=== PATIENT | female | born 1935 | race Caucasian/White ===

== ENCOUNTER 2017-02-18 18:56 | Emergency (ER) | payer MEDICARE, MEDICAID ==
[~2017-02-18] VITALS: Ht 181.6 cm; Wt 71.0 kg
[2017-02-18 19:05] VITALS: BP 118/59; PULSE 78; PULSE 82; RESP 16; TEMP 98.9; O2SAT 100; O2SAT 99
[2017-02-18 19:35] VITALS: BP 144/94; PULSE 82; RESP 16; O2SAT 96
[2017-02-18] MEDS ORDERED: LEVO75TA3 PO (19:35)
[2017-02-18] MEDS ORDERED: VITA10002 IM (19:35)
[2017-02-18] MEDS ORDERED: ALBUAER3 INH (19:35)
[2017-02-18] MEDS ORDERED: IBUP1TAB7 PO (19:37)
[2017-02-18] MEDS ORDERED: ALBU.5I NEB (19:42)
--- NOTE | 2017-02-18 19:45 | PD ---
HPI Chief Complaint: Respiratory Symptoms Time Seen by Provider: 19:19 Travel History International Travel<30 days: No Contact w/Intl Traveler<30days: No Traveled to known affect area: No History of Present Illness HPI 81yo F with PMH of COPD, paralyzed larynx since accident in 1952 here with sob for 2 days. States she uses 2 L oxygen as needed at home but is here for a wedding and does not have her oxygen with her. Pt is saturating at 98% on RA. + Cough. Denies any fever, chest pain, n/v, abdominal pain, focal weakness or numbness. PFSH Past Medical History Asthma: Yes COPD: Yes Diminished Hearing: Yes (BILAT HEARING AIDS) Headaches: Yes Respiratory: Yes Thyroid Disease: Yes Tetanus Vaccination: Unknown Influenza Vaccination: No ?: Not : 3 Para: 2 Miscarriage: 1 Tubal Ligation: Yes Past Surgical History Abdominal Surgery: Yes (GASTRIC TUBE AND REMOVAL ) Other Surgery: Yes (CEREBRAL HEMATOMA X2 REMOVED.) Social History Alcohol Use: Yes (OCC WINE) Tobacco Use: No Substance Use: No Allergies-Medications (Allergen,Severity, Reaction): Coded Allergies: codeine (Verified Allergy, Severe, HIVES, 02/18/17) Reported Meds & Prescriptions Reported Meds & Active Scripts Active Reported Albuterol Neb (Albuterol Sulfate) 2.5 Mg/0.5 Ml Neb 2.5 Mg NEB Q6HR NEB Note: The Albuterol Sulfate Inhalation Solution is concentrated and must be diluted. Read complete instructions carefully before using. Ibuprofen 800 Mg Tab 800 Mg PO Q8H PRN Proair Hfa 8.5 GM Inh (Albuterol Sulfate) 90 Mcg/Act Aer 2 Puff INH Q4-6H PRN 108 mcg/actuation Vitamin B-12 (Cyanocobalamin) 1,000 Mcg Tab 1,000 Mcg IM DAILY Levothyroxine (Levothyroxine Sodium) 75 Mcg Tab 75 Mcg PO DAILY Review of Systems Except as stated in HPI: all other systems reviewed are Neg Physical Exam Narrative GENERAL: 81yo F in mild distress. SKIN: Focused skin assessment warm/dry. HEAD: Atraumatic. Normocephalic. EYES: Pupils equal and round. No scleral icterus. No injection or drainage. ENT: No nasal bleeding or discharge. Mucous membranes pink and moist. NECK: Trachea midline. No JVD. CARDIOVASCULAR: Regular rate and rhythm. No murmur appreciated. RESPIRATORY: No accessory muscle use. Clear to auscultation. Breath sounds equal bilaterally. GASTROINTESTINAL: Abdomen soft, non-tender, nondistended. MUSCULOSKELETAL: No obvious deformities. No clubbing. No cyanosis. +Bilateral lower extremity edema. NEUROLOGICAL: Awake and alert. No obvious cranial nerve deficits. Motor grossly within normal limits. Normal speech. PSYCHIATRIC: Appropriate mood and affect; insight and judgment normal. Data Data Last Documented VS Vital Signs Date Time Temp Pulse Resp B/P (MAP) Pulse Ox O2 Delivery O2 Flow Rate FiO2 02/18/17 19:15 78 16 100 Nasal Cannula 2.50 02/18/17 19:05 98.9 118/59 (78) Orders Orders Electrocardiogram (02/18/17 19:26) Chest, Single Ap (02/18/17 19:26) Azithromycin (Zithromax) (02/18/17 21:00) MDM Medical Decision Making Medical Screen Exam Complete: Yes Emergency Medical Condition: Yes Interpretation(s) EKG: NSR 74bpm. Normal axis. ST depression V3. TWI III. Differential Diagnosis Pneumonia vs. COPD exacerbation vs. atypical ACS Narrative Course 81yo F here with sob because she does not have oxygen at home. Pt is saturating at 97% on RA. No wheezing on exam. I originally wanted blood work and duonebs and steroid but pt is refusing it and said she feels better and just wants to go home now. Pt has no chest pain and said she has a restaurant reservation so have to go. CXR showed diffuse interstitial disease. Could be pulmonary venous hypertension or mild edema vs. chronic processes. Pt has increased cough with some haziness in left heart border so will cover with azithromycin. Azithromycin 500mg PO given in the ED. Return precautions given. Diagnosis Primary Impression: COPD (chronic obstructive pulmonary disease) Qualified Codes: J44.9 - Chronic obstructive pulmonary disease, unspecified Patient Instructions: General Instructions Departure Forms: Tests/Procedures Additional Instructions: Please follow up with your primary care physician in 3-7 days. Return to the ED if symptoms worsen. Start the azithromycin prescription tomorrow for 4 days. Med/Other Pt SpecificInfo: Prescription(s) given Scripts Albuterol 18 GM Inh (Ventolin Hfa 18 GM Inh) 90 Mcg/Act Aer 2 PUFF INH Q4H Y for SHORTNESS OF BREATH, #1 INHALER 0 Refills Prov: Priya Adrian DO 02/18/17 Azithromycin (Azithromycin) 250 Mg Tab 250 MG PO DAILY for Infection for 4 Days, #4 TAB 0 Refills Prov: Priya Adrian DO 02/18/17 Disposition: 01 DISCHARGE HOME Condition: Stable Priya Adrian DO Feb 18, 2017 19:45
[2017-02-18 20:05] VITALS: BP 118/69; PULSE 76; RESP 16; O2SAT 98
--- NOTE | 2017-02-18 20:34 | RADRPT ---
EXAM DATE/TIME: 02/18/2017 19:31 [facility] COMPARISON: No previous studies available for comparison. INDICATIONS : Shortness of breath. MEDICAL HISTORY : None. SURGICAL HISTORY : None. ENCOUNTER: Initial ACUITY: 1 day PAIN SCORE: 0/10 LOCATION: Bilateral chest FINDINGS: The heart size is upper limits of normal. There is prominence of the interstitium. The interstitium d oes have a somewhat nodular appearance. A focal lobular consolidation is not seen. No effusion is see n. There is a clip in the right upper quadrant of the abdomen. CONCLUSION: Diffuse interstitial disease. This could be acute representing pulmonary venous hypertension or mild edema versus chronic processes. Prior exams are unavailable for comparison. There does appear to be a somewhat nodular component to the interstitial disease. Rayo Tripp MD on February 18, 2017 at 20:31 Board Certified Radiologist. This report was verified electronically.
[2017-02-18 20:35] VITALS: BP 109/58; PULSE 76; RESP 16; O2SAT 98
[2017-02-18] MEDS ORDERED: AZITHROMYCIN 250 MG TAB PO ONE (21:00)
[2017-02-18] MEDS ORDERED: AZIT250T3 PO (21:03)
[2017-02-18] MEDS ORDERED: VENTAER INH (21:03)
--- NOTE | 2017-02-19 14:17 | EKG ---
Date Performed: 02/18/2017 Time Performed: 20:01:42 PTAGE: 81 years EKG: Sinus rhythm NONSPECIFIC T-WAVE ABNORMALITY BORDERLINE ECG NO PREVIOUS TRACING DOCTOR: Delfino Charles Interpretating Date/Time 02/19/2017 14:11:48
== END 2017-02-18 21:25 | disposition home or self-care (01) ==
LOC: PHED 18:56
DX: J44.9 Chronic obstructive pulmonary disease, unspecified (principal)
CPT/HCPCS: 71010; 93005; 99285